=== PATIENT | male | born 1995 | race Caucasian/White ===

== ENCOUNTER 2017-03-24 09:35 | Emergency (ER) | payer MEDICAID ==
--- NOTE | 2017-03-24 10:02 | EDPHY ---
H & P Time Seen by Provider: 03/24/17 09:53 HPI/ROS: CHIEF COMPLAINT: Rectal bleeding HISTORY OF PRESENT ILLNESS: The patient is a 21-year-old man who comes to the emergency department complaining of rectal bleeding. He states that he has red scant blood on his stool and painful bowel movements. He has constipation occasionally. He does not have any abdominal pain. No nausea vomiting. REVIEW OF SYSTEMS: Constitutional: denies: chills, fever, recent illness, recent injury EENTM: denies: blurred vision, double vision, nose congestion Respiratory: denies: cough, shortness of breath Cardiac: denies: chest pain, irregular heart rate, lightheadedness, palpitations Gastrointestinal/Abdominal: See HPI Genitourinary: denies: dysuria, frequency, hematuria, pain Musculoskeletal: denies: joint pain, muscle pain Skin: denies: lesions, rash, jaundice, bruising Neurological: denies: headache, numbness, paresthesia, tingling, dizziness, weakness Hematologic/Lymphatic: denies: blood clots, easy bleeding, easy bruising Immunologic/allergic: denies: HIV/AIDS, transplant EXAM: GENERAL: Well-appearing, well-nourished and in no acute distress. HEAD: Atraumatic, normocephalic. EYES: Pupils equal round and reactive to light, extraocular movements intact, sclera anicteric, conjunctiva are normal. ENT: TMs normal, nares patent, oropharynx clear without exudates. Moist mucous membranes. NECK: Normal range of motion, supple without lymphadenopathy or JVD. LUNGS: Breath sounds clear to auscultation bilaterally and equal. No wheezes rales or rhonchi. HEART: Regular rate and rhythm without murmurs, rubs or gallops. ABDOMEN: Soft, nontender, normoactive bowel sounds. No guarding, no rebound. No masses appreciated. : Rectal exam performed with procto scope. Internal hemorrhoid seen with minimal bleeding. BACK: No CVA tenderness, no spinal tenderness, step-offs or deformities EXTREMITIES: Normal range of motion, no pitting or edema. No clubbing or cyanosis. NEUROLOGICAL: Cranial nerves II through XII grossly intact. Normal speech, normal gait. 5/5 strength, normal movement in all extremities, normal sensation PSYCH: Normal mood, normal affect. SKIN: Warm, dry, normal turgor, no visible rashes or lesions. Source: Patient Exam Limitations: No limitations - Medical/Surgical History Hx Asthma: No Hx Chronic Respiratory Disease: No Hx Diabetes: No Hx Cardiac Disease: No Hx Renal Disease: No Hx Cirrhosis: No Hx Alcoholism: No Hx HIV/AIDS: No Hx Splenectomy or Spleen Trauma: No Other PMH: Denies med surgical history. Immunizations UTD . PCP Reji Family - Family History Significant Family History: No pertinent family hx - Social History Smoking Status: Current every day smoker Alcohol Use: Sober Drug Use: None Constitutional: Initial Vital Signs Temperature (C) 36.7 C 03/24/17 09:45 Heart Rate 72 03/24/17 09:45 Respiratory Rate 16 03/24/17 09:45 Blood Pressure 144/70 H 03/24/17 09:45 O2 Sat (%) 94 03/24/17 09:45 O2 Delivery Mode Room Air Allergies/Adverse Reactions: No Known Allergies Allergy (Verified 03/24/17 10:00) Home Medications: Medication Instructions Recorded Albuterol Hfa Anes Only 03/24/17 Medical Decision Making ED Course/Re-evaluation: We discussed treatment of hemorrhoids and avoiding constipation. I recommended preparation H with hydrocortisone cream. Patient understands and will follow up with his primary. Differential Diagnosis: Partial list of the Differential diagnosis considered include but were not limited to; hemorrhoid, fissure, and although unlikely based on the history and physical exam, I also considered upper GI bleed, diverticulitis, appendicitis. I discussed these differential diagnoses and the plan with the patient as well as the usual and expected course. The patient understands that the diagnosis is provisional and that in medicine we are not always correct and that further workup is often warranted. Usual and customary warnings were given. All of the patient's questions were answered. The patient was instructed to return to the emergency department should the symptoms at all worsen or return, otherwise to followup with the physician as we discussed. Departure - Departure Disposition: Home, Routine, Self-Care Clinical Impression: Internal hemorrhoid, bleeding Condition: Fair Instructions: Constipation (ED), Hemorrhoids (ED) Additional Instructions: Use preparation H with hydrocortisone cream as directed for hemorrhoids. You may also use the suppositories for internal hemorrhoids. Referrals: Parth Estes MD [[facility] [place] Primary Care Provider] - As per Instructions Stand Alone Forms: Work Excuse
[2017-03-24 10:04] VITALS: BP 144/70; PULSE 72; RESP 16; TEMP 98.1; O2SAT 94
== END 2017-03-24 10:10 | disposition home or self-care (01) ==
LOC: CED 09:35
DX: K64.8 Other hemorrhoids (principal); F17.200 Nicotine dependence, unspecified, uncomplicated